=== PATIENT | female | born 1980 | race Caucasian/White ===

== ENCOUNTER 2021-05-02 04:03 | Emergency (ER) | payer SELFPAY ==
[~2021-05-02] VITALS: Ht 152.4 cm; Wt 79.0 kg
[~2021-05-02 04:03] MED LIST: CIPROFLOXACN500 MG PO; FIORICET PO; ONDANSETRON4 MG PO; TOPIRAMATE100 MG PO; ULTRAM50 M1 PO; ZOFRAN ODT4 MG PO
[2021-05-02] MEDS ORDERED: FIORICET PO (05:18)
[2021-05-02 05:20] VITALS: BP 106/56
== END 2021-05-02 05:37 | disposition home or self-care (01) | DRG 103 ==
LOC: ED 04:03
DX: G43.909 Migraine, unspecified, not intractable, without status migrainosus (principal)

== ENCOUNTER 2021-09-26 12:44 | Emergency (ER) | payer BC ==
[~2021-09-26] VITALS: Ht 152.4 cm; Wt 70.0 kg
[2021-09-26] MEDS ORDERED: IMITREX5 MG/ACT (13:26)
[2021-09-26] MEDS ORDERED: FIORICET PO (15:38)
[2021-09-26 15:46] VITALS: BP 126/74
== END 2021-09-26 15:46 | disposition home or self-care (01) | DRG 103 ==
LOC: ED 12:44
DX: G43.909 Migraine, unspecified, not intractable, without status migrainosus (principal)

== ENCOUNTER 2021-12-21 20:36 | Emergency (ER) | payer MEDICAID ==
[~2021-12-21] VITALS: Ht 152.4 cm; Wt 80.0 kg
[~2021-12-21 20:36] MED LIST changes: +IMITREX5 MG/ACT
[2021-12-21 21:30] VITALS: BP 115/77
[2021-12-21] MEDS ORDERED: FIORICET PO (21:57)
[2021-12-21 21:59] VITALS: BP 115/77
== END 2021-12-21 23:06 | disposition home or self-care (01) ==
LOC: ED 20:36
DX: G43.909 Migraine, unspecified, not intractable, without status migrainosus (principal)

== ENCOUNTER 2023-01-08 15:41 | Emergency (ER) | payer BC, MEDICAID ==
[~2023-01-08] VITALS: Ht 152.4 cm; Wt 86.1 kg
[2023-01-08] VITALS (10 sets, daily range): BP systolic 100–141; BP diastolic 51–92
[2023-01-08 18:32] LABS: BASO% 0.5 % (0-3); EOS% 3.2 % (0-8); HEMATOCRIT 43.9 % (37.0-47.0); HEMOGLOBIN 14.3 g/dl (12.0-16.0); IMMATURE GRANULOCYTES 0.2 % (0.0-5.0); LYMPH% 28.4 % (15-41); MEAN CELL VOLUME 92.6 fL CALC (80.0-100.0); MEAN CORPUSCULAR HGB 30.2 pG CALC (26.0-32.0); MEAN CORPUSCULAR HGB CONC 32.6 g/dL CAL (32.0-36.0); MONO% 6.4 % (2-13); NEUT# 5.34 thou/uL (2.00-7.15); NEUT% 61.3 % (42-76); RED BLOOD COUNT 4.74 mill/uL (4.20-5.60)
[2023-01-08 18:51] LABS: ALBUMIN 4.2 g/dL (3.2-5.0); ALKALINE PHOSPHATASE 64 u/l (38-126); BUN 21 mg/dL (7-17); BUN/CREATININE RATIO 19 (12-20 (CALC)); CHLORIDE 105 mmol/l (95-108); CREATININE 1.1 mg/dL (0.5-1.0); GFR FOR AFR.AMER. > 60 ML/MIN (>=60 (CALC)); GFR OTHER RACES 54 ML/MIN (>=60 (CALC)); SGOT/AST 23 u/l (14-36); SODIUM 141 mmol/l (137-146)
[2023-01-08 18:56] LABS: ANION GAP 11 (6-22 (CALC)); BILIRUBIN, TOTAL 0.1 mg/dL (0.02-1.3); CARBON DIOXIDE 29 mmol/l (22-30)
[2023-01-08] MEDS ORDERED: NAPROXEN500 MG PO (20:25)
[2023-01-08] MEDS ORDERED: MEDDOSEPAK PO (20:25)
== END 2023-01-08 20:50 | disposition home or self-care (01) | DRG 103 ==
LOC: ED 15:41
PROVIDERS: Nurse Practitioner
DX: G43.909 Migraine, unspecified, not intractable, without status migrainosus (principal)